=== PATIENT | female | born 1990 | race Caucasian/White ===

== ENCOUNTER 2018-09-03 23:21 | Emergency (ER) | payer BC ==
[~2018-09-03] VITALS: Ht 154.9 cm; Wt 65.9 kg
[2018-09-03 23:26] VITALS: TEMP 98.2
[2018-09-03] MEDS ORDERED: PRENATAL (23:40)
[2018-09-03] MEDS ORDERED: ZOFRAN ODT4 MG PO (23:40)
[2018-09-04 00:13] LABS: COLLECTION METHOD CLEAN CATCH
[2018-09-04 00:17] LABS: BASO # 0.1 (0.0-0.2); BASO % 0.4 % (0.0-2.0); EOS # 0.3 (0.0-0.7); EOS % 2.2 % (0-4.0); GRAN # 10.4 (1.4-6.5); GRAN % 75.2 % (42.2-75.2); HEMOGLOBIN 11.3 g/dl (12.5-16.0); LYMPH # 2.2 (1.2-3.4); LYMPH % 15.8 % (20.0-51.0); MEAN CELL VOLUME 94 fl (80.0-100.0); MEAN CORPUSCULAR HEMOGLOBIN 33 pg (27.0-31.0); MEAN CORPUSCULAR HGB CONC 35 g/dl (33.0-37.0); MONO # 0.8 (0.1-0.6); MONO % 5.8 % (1.7-9.3); PLATELET COUNT 192 K/mm3 (130-400); RED BLOOD COUNT 3.45 M/mm3 (4.10-5.30); REDCELL DISTRIBUTION WIDTH-CV 12.9 % (11.5-14.5)
[2018-09-04 00:20] LABS: HEMATOCRIT 32.3 % (37.0-47.0)
[2018-09-04 00:24] LABS: PH 7 (5-8); SQUAMOUS EPITHELIAL None Seen /hpf; URINE APPEARANCE Cloudy; URINE BACTERIA None Seen /hpf; URINE BILIRUBIN Negative (NEGATIVE); URINE BLOOD 3+ (NEGATIVE); URINE COLOR Yellow; URINE GLUCOSE Negative (NEGATIVE); URINE KETONE Negative (NEGATIVE); URINE LEUKOCYTE ESTERASE 2+ (NEGATIVE); URINE NITRATE Negative (NEGATIVE); URINE PROTEIN(semi-quant) 2+ (NEGATIVE); URINE RBC >50 /hpf; URINE UROBILINOGEN Negative (NEGATIVE)
[2018-09-04 00:28] LABS: ALBUMIN 3.5 gm/dL (3.5-5.0); BILIRUBIN,TOTAL 0.2 mg/dL (0.0-1.0); CALCIUM 8.8 mg/dL (8.4-10.2); CREATININE, serum 0.59 mg/dL (0.52-1.25); POTASSIUM 3.5 mmol/L (3.4-5.0); TOTAL PROTEIN 6.5 gm/dL (6.4-8.2)
[2018-09-04] MEDS ORDERED: CEFTIN500 MG PO (00:44)
[2018-09-04 01:31] VITALS: BP 107/68; PULSE 75
== END 2018-09-04 01:31 | disposition home or self-care (01) ==
LOC: COL.ER 23:21
PROVIDERS: Emergency Medicine
DX: O23.13 Infections of bladder in pregnancy, third trimester (principal); Z3A.21 21 weeks gestation of pregnancy; Z90.89 Acquired absence of other organs
CPT/HCPCS: J0696